=== PATIENT | male | born 1995 | race Two or more races ===

== ENCOUNTER 2017-04-23 06:46 | Emergency (ER) | payer SELFPAY ==
--- NOTE | ~2017-04-23 | ER ---
PATIENT'S NAME: [facility] AGE: 21 Y [address] ROOM: [place] [id number] LOCATION: [facility] ADMIT DATE: 04/23/2017 ER/Outpatient Report DISCHARGE DATE: 04/23/2017 FAMILY PHYSICIAN: PHYSICIAN, NO ATTENDING PHYSICIAN: Andrea Diaz Time of arrival: 0646 hours. Time of evaluation: 0655 hours. CHIEF COMPLAINT: Neck pain. HISTORY OF PRESENT ILLNESS: The patient is a 21-year-old male, who presents to the emergency department today with a chief complaint of neck pain. He reports 1-hour prior to arrival, he turned his head, he had some cracking and had severe pain in the left side of his neck. He reports it is now painful to move, it is 10/10. It is sharp. It is worse with movement. Denies any numbness or tingling sensation of his extremities. He denies any fevers or chills. No nausea or vomiting. No diarrhea or constipation. Denies any trauma. No headache. PAST MEDICAL HISTORY: Liver problems diagnosed with a fatty liver. PAST SURGICAL HISTORY: None. SOCIAL HISTORY: The patient denies any tobacco, alcohol, or illicit drug use. ALLERGIES: NO KNOWN DRUG ALLERGIES. MEDICATIONS: Please see list. PRIMARY CARE DOCTORS: Sonali Velázquez M.D. REVIEW OF SYSTEMS: All systems are reviewed by myself and negative with the exception of those discussed in HPI and past medical history. PHYSICAL EXAMINATION: VITAL SIGNS: Weight 75.8 kg, blood pressure 130/83, pulse 81, respiratory PATIENT'S NAME: [facility] AGE: 21 Y [address] ROOM: [place] [address] LOCATION: [facility] ADMIT DATE: 04/23/2017 ER/Outpatient Report DISCHARGE DATE: 04/23/2017 FAMILY PHYSICIAN: PHYSICIAN, NO ATTENDING PHYSICIAN: Andrea Diaz rate 20, temperature 97.2, and oxygen saturation 97% on room air. GENERAL: The patient is a 21-year-old male, who appears stated age, in acute distress secondary to discomfort in his neck. HEENT: Normocephalic and atraumatic. Pupils are equal, round, and reactive to light. Extraocular motions are intact. Nares are patent bilaterally. Oropharynx is clear. NECK: The patient is rotated to the right and slightly flexed, he does have tenderness to palpation along the left sternocleidomastoid as well as into the trapezius as well. CARDIOVASCULAR: Regular rate and rhythm. No murmurs, rubs, or gallops. LUNGS: Clear to auscultation bilaterally. No wheezes, rales, or rhonchi. ABDOMEN: Soft, nontender, and nondistended. No rebound, rigidity, or guarding. MUSCULOSKELETAL: The patient has 5/5 muscle strength upper extremities. NEUROLOGICAL: 2/4 reflexes triceps and biceps and brachial radialis. These are equal bilaterally. SKIN: Warm and dry. LABORATORY DATA AND X-RAYS: None. IMPRESSION: 1. Torticollis. 2. Initial visit. EMERGENCY DEPARTMENT COURSE: The patient is brought back to the examination room. Seen and evaluated by myself. IV is established. The patient is given 1 mg of Cogentin as well as 50 mg of Benadryl IV. He is given 30 mg of Toradol IV as well as 2.5 mg of morphine IV. This has resulted in significant improvement patient's symptoms. He still does have some pain and some mild torticollis at this time. I have written a prescription for [place] and Flexeril for home with sedation warning. I have discussed return to care instructions including worsening symptoms or any other concerns return to the emergency department as soon as possible. The patient is agreeable without further questions at this time. DISPOSITION: The patient is discharged to home in good condition. DO NITHYA LEMA/juanil [facility]GE[facility] 21 Y [address] ROOM: [place], [place] [address] LOCATION: [facility] ADMIT DATE: 04/23/2017 ER/Outpatient Report DISCHARGE DATE: 04/23/2017 FAMILY PHYSICIAN: PHYSICIAN, NO ATTENDING PHYSICIAN: Andrea Diaz /[id number] d: 04/23/17 1125 t: 04/23/17 1620, OUTPATIENT REPORT
== END 2017-04-23 08:32 | disposition disaster alternative care site (69) ==
LOC: GMED 06:46
DX: M43.6 Torticollis (principal)
CPT/HCPCS: J0515; J1200; J1885; J2270